=== PATIENT | female | born 1970 | race Caucasian/White ===

== ENCOUNTER 2017-10-24 13:51 | Emergency (ER) | payer OTHER ==
[~2017-10-24] VITALS: Ht 180.3 cm; Wt 70.2 kg
[~2017-10-24 13:51] MED LIST: Z.0.NO CURRENT MEDS
[2017-10-24 13:57] VITALS: BP 129/79; PULSE 104; RESP 16; TEMP 97.8; O2SAT 96
--- NOTE | 2017-10-24 14:33 | RADRPT ---
EXAM DATE/TIME: 10/24/2017 14:23 [place] COMPARISON: No previous studies available for comparison. INDICATIONS : Fell twisting foot, pain worse across top of foot MEDICAL HISTORY : None. SURGICAL HISTORY : None. ENCOUNTER: Initial ACUITY: 1 day PAIN SCORE: 10/10 LOCATION: Left foot FINDINGS: Three view examination of the left foot demonstrates no soft tissue swelling, dislocation, or fractur e. The tarsal bones appear intact. The interphalangeal and metatarsophalangeal joints are intact. The calcaneus is intact. Bony mineralization is normal. CONCLUSION: No acute fracture. Ken Maradiaga MD on October 24, 2017 at 14:31 Board Certified Radiologist. This report was verified electronically.
--- NOTE | 2017-10-24 14:52 | PD ---
HPI Chief Complaint: Injury Time Seen by Provider: 14:12 (Beryl Lock) Time Seen by Provider: 14:47 (Stephanie Calvillo DO) Travel History International Travel<30 days: No Contact w/Intl Traveler<30days: No Traveled to known affect area: No (Beryl Lock) International Travel<30 days: No Contact w/Intl Traveler<30days: No (Stephanie Calvillo DO) History of Present Illness HPI 47-year-old female here with left foot pain dorsal aspect after twisting injury last night. Denies paresthesia or weakness of the extremity. Patient has pain with weightbearing which is relieved with rest. Symptom severity is mild to moderate. No other injuries. (Beryl Lock) PFSH Past Medical History Depression: Yes Diminished Hearing: No Immunizations Current: Yes Tetanus Vaccination: < 5 Years Influenza Vaccination: No ?: Not (Beryl Lock) Past Surgical History Hysterectomy: Yes Other Surgery: Yes (THROAT DILATION SEVERAL YEARS AGO) (Beryl Lock) Social History Alcohol Use: Yes (ONCE/WEEK) Tobacco Use: Yes (1/2 PPD) Substance Use: No (Beryl Lock) Allergies-Medications (Allergen,Severity, Reaction): Coded Allergies: morphine (Unverified Allergy, Severe, ITCHING, 10/24/17) Reported Meds & Prescriptions Reported Meds & Active Scripts Active No Active Prescriptions or Reported Medications (Stephanie Calvillo DO) Review of Systems Except as stated in HPI: all other systems reviewed are Neg (Beryl Lock) Physical Exam Narrative GENERAL: Alert and well-appearing 47 old female SKIN: Warm and dry. HEAD: Normocephalic. EYES: No injection or drainage. NECK: Supple CARDIOVASCULAR: Regular rate and rhythm without murmurs, gallops, or rubs. RESPIRATORY: Breath sounds equal bilaterally. No accessory muscle use. GASTROINTESTINAL: Abdomen soft, non-tender, nondistended. MUSCULOSKELETAL: No cyanosis, or edema. Left foot: No numbness of the dorsal aspect. Mild swelling. No deformity. 2+ dorsal pedis pulse. Normal sensation. Brisk cap refill. BACK: No CVA tenderness. (Beryl Lock) Data Data Last Documented VS Vital Signs Date Time Temp Pulse Resp B/P (MAP) Pulse Ox O2 Delivery O2 Flow Rate FiO2 10/24/17 15:15 10/24/17 13:57 97.8 104 16 96 Room Air (Stephanie Calvillo DO) Orders Orders Foot, Complete ([id number]) (10/24/17 ) Carlo Bandage (10/24/17 14:52) Ed Discharge Order (10/24/17 14:53) (Stephanie Calvillo DO) MDM Medical Decision Making Medical Screen Exam Complete: Yes Emergency Medical Condition: Yes Differential Diagnosis Foot fracture, midfoot sprain, contusion Narrative Course 47-year-old female here with left foot pain dorsal aspect after twisting injury last night. The extremity is neurovascularly intact. X-rays negative for fracture. Will be treated for midfoot sprain (Beryl Lock) Diagnosis Primary Impression: Foot sprain Qualified Codes: S93.602A - Unspecified sprain of left foot, initial encounter Referrals: Primary Care Physician Additional Instructions: Carlo wrap for support. Ice and elevate the extremity. Tylenol and ibuprofen as needed for pain Scripts No Active Prescriptions or Reported Meds Disposition: 01 DISCHARGE HOME Condition: Stable Beryl Lock Oct 24, 2017 14:51 Stephanie Calvillo DO Oct 27, 2017 11:19
== END 2017-10-24 15:16 | disposition home or self-care (01) ==
LOC: PHEFT 13:51
DX: S93.602A Unspecified sprain of left foot, initial encounter (principal); F32.9 Major depressive disorder, single episode, unspecified; F17.200 Nicotine dependence, unspecified, uncomplicated; X50.1XXA Overexertion from prolonged static or awkward postures, initial encounter; Z88.5 Allergy status to narcotic agent
CPT/HCPCS: 73630; 99283